=== PATIENT | male | born 1950 | race Caucasian/White ===

== ENCOUNTER 2017-07-04 22:13 | Emergency (ER) | payer MEDICARE | END 2017-07-04 22:41 | disposition home or self-care (01) | LOC: BURERS 22:13 | DX: L50.9 Urticaria, unspecified (principal); E03.9 Hypothyroidism, unspecified; E78.5 Hyperlipidemia, unspecified; I10 Essential (primary) hypertension; Z87.891 Personal history of nicotine dependence; Z79.899 Other long term (current) drug therapy | CPT/HCPCS: 96372 ==

== ENCOUNTER 2017-07-06 04:18 | Emergency (ER) | payer MEDICARE ==
[2017-07-06] MEDS ORDERED: predniSONE 20 MG TAB ONE (04:36)
== END 2017-07-06 04:40 | disposition home or self-care (01) ==
LOC: BURERS 04:18
DX: L50.9 Urticaria, unspecified (principal); E78.5 Hyperlipidemia, unspecified; I10 Essential (primary) hypertension; Z87.891 Personal history of nicotine dependence; Z79.899 Other long term (current) drug therapy
CPT/HCPCS: 99282; J7506

== ENCOUNTER 2024-12-30 09:29 | Emergency (ER) | payer MEDICARE, OTHER ==
[2024-12-30] MEDS ORDERED: Amoxicillin/Potassium Clav 875 MG TAB ONE (09:55)
[2024-12-30] MEDS ORDERED: Ibuprofen 800 MG TAB ONE (09:55)
[2024-12-30] MEDS ORDERED: Boostrix 0.5 ML (Tdap) VIAL (>/=7 yrs of age) ONE (09:56)
== END 2024-12-30 10:08 | disposition home or self-care (01) ==
LOC: BURERS 09:29
DX: S91.352A Open bite, left foot, initial encounter (principal); S90.812A Abrasion, left foot, initial encounter; E78.5 Hyperlipidemia, unspecified; I10 Essential (primary) hypertension; E03.9 Hypothyroidism, unspecified; W54.0XXA Bitten by dog, initial encounter; Z87.891 Personal history of nicotine dependence; Z79.899 Other long term (current) drug therapy
CPT/HCPCS: 90471; 90715